=== PATIENT | female | born 1970 | race Caucasian/White ===

== ENCOUNTER → 2023-07-14 | Outpatient (CLI) | payer OTHER ==
[~2023-07-14] MED LIST: PROHANCE 279.3MG/ML 15ML VIAL As Ordered ONE
== END ==
LOC: M RAD 12:09
PROVIDERS: ATTEND Otolaryngology
DX: R43.8 Other disturbances of smell and taste (principal)
CPT/HCPCS: 70553; A9576

== ENCOUNTER → 2023-07-15 | Outpatient (CLI) | payer OTHER ==
[~2023-07-15] MED LIST changes: +GASTROGRAFIN SOLUTION 30ML ONE; +ISOVUE-370 76% 100ML VIAL ONE; -PROHANCE 279.3MG/ML 15ML VIAL As Ordered ONE
== END ==
LOC: M PLAIMG 08:06
PROVIDERS: ATTEND Nurse Practitioner Family
DX: R10.32 Left lower quadrant pain (principal)

== ENCOUNTER → 2023-10-04 | Outpatient (CLI) | payer OTHER | LOC: M CARPUL 11:00 | PROVIDERS: ATTEND Internal Medicine Cardiovascular Disease | DX: I25.10 Atherosclerotic heart disease of native coronary artery without angina pectoris (principal); R06.09 Other forms of dyspnea ==

== ENCOUNTER → 2024-06-26 | Outpatient (REF) | payer OTHER | LOC: M SFHCWAGY 17:22 | PROVIDERS: ATTEND Advanced Practice Midwife | DX: Z12.4 Encounter for screening for malignant neoplasm of cervix (principal) ==

== ENCOUNTER → 2024-08-01 | Outpatient (CLI) | payer OTHER | LOC: M PLAIMG 09:44 | PROVIDERS: ATTEND Family Medicine | DX: D38.1 Neoplasm of uncertain behavior of trachea, bronchus and lung (principal) ==

== ENCOUNTER 2025-05-29 11:14 | Emergency (ER) | payer OTHER ==
[~2025-05-29] VITALS: Ht 149.9 cm; Wt 73.2 kg
[2025-05-29 11:23] VITALS: TEMP 99.8
[2025-05-29] MEDS: NS (Normal Saline) 0.9% 1,000 ML IV ONE (11:32)
[2025-05-29] MEDS ORDERED: FAMO40TA3 (11:35)
[2025-05-29] MEDS ORDERED: ROSU5TAB49 (11:35)
[2025-05-29] MEDS ORDERED: OSEL75CA2 (11:35)
[2025-05-29] MEDS ORDERED: ONDA-282 (11:35)
[2025-05-29] MEDS ORDERED: LOSA50TA5 (11:35)
[2025-05-29 11:40] LABS: VENOUS BASE EXCESS 1.5 (-2.0-2.0); VENOUS HCO3 26.0 MMOL/L (23.0-27.0); VENOUS O2 SATURATION 79.8 % (60.0-80.0); VENOUS PARTIAL PRESSURE CO2 40.7 mmHg (38.0-50.0); VENOUS PARTIAL PRESSURE O2 43.6 mmHg (30.0-50.0); VENOUS PH 7.424 UNITS (7.330-7.430); VENOUS STANDARD HCO3 25.4 MMOL/L; VENOUS TOTAL CO2 27.3 MMOL/L (24.0-28.0)
[2025-05-29 11:53] LABS: BASO # 0.0 10^3/uL (0.0-0.2); BASO % 0.2 % (0.0-1.0); EOS # 0.0 10^3/uL (0.0-0.5); EOS % 0.0 % (0.0-3.0); LYMPH # 1.1 10^3/uL (1.5-5.0); LYMPH % 22.3 % (24.0-44.0); MONO # 0.4 10^3/uL (0.0-0.8); MONO % 7.8 % (2.0-8.0); NEUTROPHILS # 3.3 10^3/uL (1.5-8.5); NEUTROPHILS % 69.3 % (36.0-66.0); PLATELET COUNT, AUTOMATED 143 10^3/uL (150-450)
[2025-05-29 12:09] LABS: C REACTIVE PROTEIN QUANTITATIV 4.35 MG/DL (<1.0)
[2025-05-29 12:20] LABS: ALT/SGPT 41.0 U/L (7.0-40); AST/SGOT 67.0 U/L (<34); CALCIUM LEVEL 7.3 MG/DL (8.5-10.1); CARBON DIOXIDE LEVEL 26.0 MMOL/L (20-31); CHLORIDE LEVEL 98.0 MMOL/L (98-107); CREATININE FOR GFR 0.91 MG/DL (0.55-1.30); GLOMERULAR FILTRATION RATE 74.5 (>51); POTASSIUM SERUM 3.9 MMOL/L (3.5-5.1); SODIUM LEVEL 134.0 MMOL/L (136-145)
[2025-05-29] MEDS: KETOROLAC 30 MG/ML 1 ML VIAL IV ONE (13:20)
[2025-05-29 14:33] VITALS: O2SAT 98
[2025-05-29 15:23] VITALS: BP 105/59; O2SAT 88
== END 2025-05-29 15:41 | disposition home or self-care (01) ==
LOC: EDBD 11:14 → M ED 12:11
DX: J09.X2 Influenza due to identified novel influenza A virus with other respiratory manifestations (principal); E86.0 Dehydration; F41.9 Anxiety disorder, unspecified; Z88.1 Allergy status to other antibiotic agents; Z91.018 Allergy to other foods; Z79.899 Other long term (current) drug therapy